=== PATIENT | male | born 2005 | race Caucasian/White ===

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

== ENCOUNTER 2024-12-01 19:39 | Emergency (ER) | payer OTHER ==
[~2024-12-01] VITALS: Ht 175.2 cm; Wt 59.9 kg
[~2024-12-01 19:39] MED LIST: Bactroban Oint22 GM T; ELIMITE 5%60 GM T
[2024-12-01] MEDS ORDERED: CEPHALEXIN 500 MG CAP PO ONE (20:00)
[2024-12-01] MEDS ORDERED: CEPHALEXIN500 M1 PO (20:02)
== END 2024-12-01 20:09 | disposition home or self-care (01) ==
LOC: ED 19:39
DX: L03.116 Cellulitis of left lower limb (principal); Z79.899 Other long term (current) drug therapy

== ENCOUNTER 2024-12-04 17:40 | Emergency (ER) | payer OTHER ==
[~2024-12-04] VITALS: Ht 172.7 cm; Wt 59.0 kg
[~2024-12-04 17:40] MED LIST changes: +CEPHALEXIN500 M1 PO
[2024-12-04 19:35] LABS: BASO # 0.1 10*3/uL (0.0-0.1); BASO % 0.8 % (0.0-1.0); EOS # 0.1 10*3/uL (0.0-0.4); EOS % 1.6 % (1.0-4.0); HEMATOCRIT 39.1 % (42.0-52.0); MEAN CELL VOLUME 90.5 fl (80.0-94.0); MEAN CORPUSCULAR HGB 30.8 pg (27.0-31.0); MEAN PLATELET VOLUME 10.4 fl (9.6-12.3); MONO % 12.7 % (3.0-9.0); NEUT # 5.3 10*3/uL (2.3-7.9); NEUT % 71.3 % (47.0-73.0); PLATELET COUNT AUTOMATED 119 10*3/uL (130-400); RED BLOOD COUNT 4.32 10*6/uL (4.50-5.90); RED CELL DISTRI WIDTH 11.7 % (0-14.5); WHITE BLOOD COUNT 7.5 10*3/uL (4.8-10.8)
[2024-12-04 19:57] LABS: BUN 11 mg/dl (9-23); CHLORIDE 103 mmol/L (98-107); POTASSIUM 3.6 mmol/L (3.4-5.1)
[2024-12-04] MEDS ORDERED: Sulfamethoxazole/Trimethopri 1 TAB TAB PO ONE (20:10)
[2024-12-04] MEDS ORDERED: SEPTDS PO (20:10)
[2024-12-04] MEDS ORDERED: IBUPROFEN 600 MG TAB PO ONE (20:15)
[2024-12-04] MEDS ORDERED: ACETAMINOPHEN 325 MG TAB PO ONE (20:15)
== END 2024-12-04 20:48 | disposition home or self-care (01) ==
LOC: ED 17:40
PROVIDERS: Nurse Practitioner Family
DX: L03.116 Cellulitis of left lower limb (principal)

== ENCOUNTER 2024-12-06 19:29 | Emergency (ER) | payer OTHER ==
[~2024-12-06] VITALS: Ht 177.8 cm; Wt 77.1 kg
[~2024-12-06 19:29] MED LIST changes: +SEPTDS PO
[2024-12-06] MEDS ORDERED: methylPREDNISolone sod succ 125 MG VIAL IV ONE (19:45)
[2024-12-06] MEDS ORDERED: FAMOTIDINE 50 ML IV ONE (19:45)
[2024-12-06] MEDS ORDERED: diphenhydrAMINE hydrochloride 50 MG/ML VIAL IV ONE (19:45)
[2024-12-06] MEDS ORDERED: Water, Sterile 10 ML VIAL ONE (20:06)
[2024-12-06] MEDS ORDERED: CLINDAMYCIN HC300 MG PO (22:25)
== END 2024-12-06 22:23 | disposition home or self-care (01) ==
LOC: ED 19:29
DX: L50.9 Urticaria, unspecified (principal); T36.8X5A Adverse effect of other systemic antibiotics, initial encounter; Y92.89 Other specified places as the place of occurrence of the external cause

== ENCOUNTER 2025-03-29 18:15 | Emergency (ER) | payer OTHER ==
[~2025-03-29 18:15] MED LIST changes: +CLINDAMYCIN HC300 MG PO
[2025-03-29] MEDS ORDERED: PREDNISONE10 M1 PO (18:50)
[2025-03-29] MEDS ORDERED: AMOX-CLAV 875-1 EACH PO (18:50)
== END 2025-03-29 19:36 | disposition home or self-care (01) ==
LOC: ED 18:15
DX: S90.861A Insect bite (nonvenomous), right foot, initial encounter (principal); W57.XXXA Bitten or stung by nonvenomous insect and other nonvenomous arthropods, initial encounter; Y93.89 Activity, other specified; Y92.89 Other specified places as the place of occurrence of the external cause; Y99.8 Other external cause status

== ENCOUNTER 2025-04-08 17:36 | Emergency (ER) | payer OTHER ==
[~2025-04-08] VITALS: Ht 172.7 cm; Wt 59.0 kg
[~2025-04-08 17:36] MED LIST changes: +AMOX-CLAV 875-1 EACH PO; +PREDNISONE10 M1 PO
[2025-04-08] MEDS ORDERED: Sulfamethoxazole/Trimethopri 1 TAB TAB PO ONE (18:00)
[2025-04-08] MEDS ORDERED: SEPTDS PO (18:02)
== END 2025-04-08 18:30 | disposition home or self-care (01) ==
LOC: ED 17:36
DX: L02.611 Cutaneous abscess of right foot (principal)